=== PATIENT | male | born 2000 | race Caucasian/White ===

== ENCOUNTER 2024-09-20 12:51 | Outpatient (CLI) | payer OTHER, SELFPAY ==
--- NOTE | 2024-09-20 13:00 | CRLHL7_ITS ---
For Patients: As a result of the Century Cures Act, medical imaging exams and procedure reports are released immediately into your electronic medical record. You may view this report before your referring provider. If you have questions, please contact your health care provider. INDICATION: Abnormal weight loss. TECHNIQUE: CT abdomen and pelvis acquired with 91 cc of Isovue 370 IV contrast. COMPARISON: None. FINDINGS: Lower chest: Lung bases are clear. No pleural or pericardial effusions. Liver: Unremarkable. Spleen: Unremarkable. Pancreas: Unremarkable. Gallbladder and bile ducts: No calcified stones or biliary ductal dilatation. Kidneys: No urolithiasis, hydronephrosis or suspicious lesion. Adrenal glands: Unremarkable. GI tract: Fecal loading of the proximal colon with relative collapse of the transverse and descending colon. No bowel obstruction or definite bowel wall thickening. No focal inflammatory change elsewhere in the GI tract. No evidence of acute appendicitis. No free air or free fluid. Lymph nodes: No pathologic lymphadenopathy. Vascular structures: Unremarkable. Pelvic Organs: Unremarkable. Bones: No acute or suspicious osseous abnormality. IMPRESSION: No CT finding to strongly suggest cause for weight loss. Dictated by Nitin Che MD @ 09/21/2024 10:04:39 AM Please note that all CT scans at this facility use dose modulation, iterative reconstruction, and/or weight-based dosing when appropriate to reduce radiation dose to as low as reasonably achievable. Dictated by: Nitin Che MD @ 09/21/2024 10:04:50 (Electronically Signed)
== END 2024-09-20 12:52 | disposition home or self-care (01) ==
DX: R63.4 Abnormal weight loss (principal)
CPT/HCPCS: 74177; Q9967